=== PATIENT | male | born 1980 | race American Indian/Alaskan Native ===

== ENCOUNTER 2018-09-18 10:49 | Emergency (ER) | payer SELFPAY ==
--- NOTE | 2018-09-18 12:26 | Emergency Department Report ---
HPI - General Chief Complaint: Skin/Abscess/Foreign Body Time Seen by Provider: 09/18/18 12:16 - HPI HPI: 38-year-old male presents to the emergency department with complaint of an abscess under his left armpit, closer to the arm itself. The patient says it was much larger over the past few days but he opened it and drained it yesterday and he says it looks like it "has almost gone away." He still has some discomfort that he says sometimes will radiate down the left arm. He denies any fever. No past medical history. ED Past Medical Hx - Past Medical History Previous Medical History?: No - Surgical History Past Surgical History?: No - Social History Smoking Status: Never Smoker Substance Use Type: Alcohol - Medications Home Medications: Home Medications Medication Instructions Recorded Confirmed Last Taken Type Sulfamethoxazole/Trimethoprim 1 each PO BID #14 tablet 09/18/18 Unknown Rx [Bactrim DS TAB] ED Review of Systems ROS: Stated complaint: BOIL Other details as noted in HPI Comment: All other systems reviewed and negative Constitutional: denies: chills, fever Musculoskeletal: myalgia Skin: lesions. denies: change in color Physical Exam - Physical Exam Vital Signs: Vital Signs 09/18/18 11:18 Temperature 98.4 F Pulse Rate 81 Respiratory 18 Rate Blood Pressure 135/86 O2 Sat by Pulse 100 Oximetry Physical Exam: GENERAL: The patient is well-developed well-nourished. HENT: Normocephalic. Atraumatic. Patient has moist mucous membranes. EYES: Extraocular motions are intact. NECK: Supple. Trachea is midline. CHEST/LUNGS: Clear to auscultation. There is no respiratory distress noted. HEART/CARDIOVASCULAR: Regular. There is no tachycardia. There is no murmur. ABDOMEN: There is no abdominal distention. SKIN: There is a small mobile fluctuant lesion to the left axilla that is closer to the arm then the thorax. It is about 4 cm in diameter. There is no surrounding erythema. No current bleeding or drainage. NEURO: The patient is awake, alert, and oriented. The patient is cooperative. The patient has no focal neurologic deficits. The patient has normal speech. MUSCULOSKELETAL: There is no tenderness or deformity. There is no limitation range of motion. There is no evidence of acute injury. ED Course Vital Signs 09/18/18 11:18 Temperature 98.4 F Pulse Rate 81 Respiratory 18 Rate Blood Pressure 135/86 O2 Sat by Pulse 100 Oximetry ED Medical Decision Making - Medical Decision Making This patient presents to the emergency department with what appears to be an abscess to the left axilla. The patient says it is not even draining and it has greatly decreased in size since it began draining. He is afebrile. No signs of any cellulitis. For all of these reasons, he does not appear to require an incision and drainage. He will be placed on some antibiotics and will use warm compresses. He will return to the emergency Department with any worsening of his symptoms, with any acute distress. - Differential Diagnosis abscess, cyst, hydradenitis, lymph node Critical Care Time: No Critical care attestation.: If time is entered above; I have spent that time in minutes in the direct care of this critically ill patient, excluding procedure time. ED Disposition Clinical Impression: Abscess Disposition: DC-01 TO HOME OR SELFCARE Is pt being admited?: No Condition: Stable Instructions: Abscess (ED) Additional Instructions: Please use a warm, but not hot, compress times per day against the abscess to try and express any further infection. Take the antibiotics as prescribed. Return to the emergency Department with any worsening of your symptoms including increased size/swelling/pain, development of fever, with any acute distress. Prescriptions: Sulfamethoxazole/Trimethoprim [Bactrim DS TAB] 1 each PO BID #14 tablet Referrals: [facility] [Outside] - 2-3 Days Time of Disposition: 12:26
[2018-09-18 12:42] VITALS: BP 131/81
== END 2018-09-18 12:41 | disposition home or self-care (01) ==
LOC: ED 10:49
DX: L02.412 Cutaneous abscess of left axilla (principal)
CPT/HCPCS: 99282